=== PATIENT | female | born 1945 | race Caucasian/White ===

== ENCOUNTER 2017-11-19 12:50 | Emergency (ER) | payer MEDICARE, OTHER ==
[~2017-11-19] VITALS: Ht 170.2 cm; Wt 120.4 kg
[2017-11-19] MEDS ORDERED: PREDNISONE50 MG PO (13:19)
[2017-11-19 14:01] VITALS: BP 120/64
== END 2017-11-19 14:01 | disposition home or self-care (01) ==
LOC: ED 12:50
DX: M19.031 Primary osteoarthritis, right wrist (principal); M79.7 Fibromyalgia; E11.9 Type 2 diabetes mellitus without complications; I10 Essential (primary) hypertension; E66.9 Obesity, unspecified; E78.5 Hyperlipidemia, unspecified; K21.9 Gastro-esophageal reflux disease without esophagitis